=== PATIENT | male | born 1970 | race Caucasian/White ===

== ENCOUNTER 2020-02-11 10:26 | Outpatient (CLI) | payer OTHER, SELFPAY ==
[2020-02-11 10:55] LABS: Hematocrit 45.5 % (42.0-52.0); Hemoglobin 15.8 g/dL (14.0-18.0); Mean Corpuscular HGB Conc 34.7 g/dl (32-36); Mean Corpuscular Hemoglobin 33.3 pg (26-34); Mean Platelet Volume 9.8 fl (7.4-10.4); Platelet Count Result 185 k/mm3 (150-375); Red Blood Count 4.74 M/mm3 (4.6-6.20); Red Cell Distribution Width 12.2 % (11.5-14.5); White Blood Count 5.3 K/mm3 (4.5-10.0)
[2020-02-11 10:57] LABS: Add Urine Microscopic? NO; Appearance Urine Clear (Clear); Bilirubin Urine Negative (Negative); Blood Urine Negative (Negative); Color Urine Straw (Yellow); Glucose Urine UA Negative (Negative); Ketones Urine Negative (Negative); Leukocyte Esterase Ur Negative LEU/UL (NEGATIVE); Nitrate Urine Negative (Negative); Protein Urine Negative (Negative); Urobilinogen Urine Negative mg/dL (<2.0)
[2020-02-11 11:09] LABS: Alanine Aminotransferase 27 U/L (4-50); Albumin Level 4.4 g/dL (3.5-5.1); Alkaline Phosphatase 60 U/L (38-126); Anion Gap 5 mmol/L (8-16); Aspartate Amino Transferase 25 U/L (17-59); Bilirubin,Total 1.3 mg/dL (0.2-1.3); Blood Urea Nitrogen 17 mg/dL (9-20); Calcium 9.6 mg/dL (8.4-10.2); Carbon Dioxide 34 mmol/L (22-30); Chloride 100 mmol/L (98-107); Cholesterol 236 mg/dL (0-200); Estimated Glomerular Filt Rate > 60; Glucose 104 mg/dL (75-110); HDL Direct 66 mg/dL; Potassium 4.3 mmol/L (3.4-5.0); Sodium 139 mmol/L (137-145); Triglycerides 136 mg/dL (<150)
[2020-02-11 11:22] LABS: LDL Cholesterol Direct 146 mg/dL
[2020-02-11 11:39] LABS: Prostate Specific Antigen 0.5 ng/mL (< OR = 4.0)
[2020-02-11 12:20] LABS: Folic Acid 7.4 ng/mL (2.76->20)
[2020-02-14 09:22] LABS: Testosterone Total 603 ng/dL (250-1100)
== END 2020-02-11 10:27 | disposition home or self-care (01) ==
PROVIDERS: PCP Family Medicine; Visit Provider Family Medicine
DX: Z00.00 Encounter for general adult medical examination without abnormal findings (principal); E78.2 Mixed hyperlipidemia; R53.83 Other fatigue
CPT/HCPCS: 36415; 80053; 80061; 81003; 82607; 82746; 84153; 84403; 84443; 85027

== ENCOUNTER 2020-03-24 09:41 | Outpatient (CLI) | payer OTHER, SELFPAY ==
--- NOTE | 2020-05-07 12:20 | WPDHOMESLEEP ---
Sleep Study - Home Unattended Date of Study: 03/24/20 Ordering Provider: Sean Cartwright MD Interpreting Physician: Bethany Castano MD Home Sleep Study Type: Watch PAT Height: 1.8 m Weight: 83.915 kg Body Mass Index: 25.7 Neck Circumference (inches): 16.5 Tunas: 10 Reason for Sleep Study Hypersomnolence Sleep History Owen Laura is a 50 year old man who has constant feelings of tiredness, fatigue, and excessive sleepiness during the day. He keeps a regular schedule, tries to get 7-8 hours of sleep at night. He has chronic daytime fatigue. He has dreams, however not often. He has nocturia, at most up to twice per week. He does not have any nasal symptoms such as nasal congestion, septal deviation or seasonal allergies. He denies heartburn, choking or coughing at night. He snores and has been told by others that he stops breathing at night. He had a difficult divorce last year and a career change, with associated stress and depression. He has had weight gain and fatigue. He did not complete the patient questionnaire. FORMERLY [facility] Past Medical History Medical History Elevated blood pressure reading HLD (hyperlipidemia) Hypertension Smoking Family History Family History Father Hypertension Family history of elevated blood lipids Family history of coronary artery disease Mother Hypertension Sibling Family history of elevated blood lipids Social History Social History Smoking packs per day: 1 Smoking cigarettes per day: 20.0 Smoking status: Current every day smoker Tobacco type: cigarettes Second hand tobacco smoke exposure: Yes Alcohol intake: current Drinks per week: 14 Substance use: never Substance use type: does not use Gender identity (if verbalized by the patient): Male Medications Home Medications Medication Instructions Recorded Confirmed Type pravastatin 20 mg tablet 20 mg PO DAILY #90 tablet 02/22/20 Rx Sleep Procedure The sleep study was completed using WatchPAT a technically adequate device with seven channels: peripheral arterial tone, actigraphy, body position, snore, respiratory movement, pulse oximetry, sleep staging, and heart rate. Prior to using the device, the patient received verbal and written instructions for its application and was provided with the help desk phone number for additional telephonic instruction with 24-hour availability of qualified personnel to answer questions. Sleep Architecture The total recording time was 7 hours 55 minutes. This total sleep time was 6 hours and 56 minutes. Sleep latency was 20 minutes, normal. REM latency was 50 minutes, short and this is consistent with hypersomnolence. Sleep efficiency was 87.5% which is normal. He spent 12.5% of the study awake after sleep onset. Sleep architecture showed 33% REM, 38% light sleep, and 28% deep sleep. This is normal sleep architecture. The patient spent 85.7% of the sleep time in the supine position, 14.3% in the nonsupine position. He spent 8.9% in the right lateral and 5.4% in the left lateral position. Respiratory Analysis The apnea-hypopnea index was 5.2, mildly elevated. He had a total of 33 events. He had no central apneas. There was no evidence of Nelson-Mcmahon respirations. The supine apnea-hypopnea index is 5.9. The nonsupine apnea-hypopnea index is 1.0. He had no events in the right lateral position. Oximetry Data Oxygen desaturation index was 4.8. He had 33 desaturations. The lowest desaturation was 89%. All events were between 4% and 9% desaturation. He spent 0.1 minute below 90%. No time was spent below 88%. Snoring Profile The mean snoring intensity was 41 decibels. He spent 36.8 minutes of sleep snoring, 8.8% of the sleep time. This is not considered severe. Cardiac Profile Average heart rate was 63. Minimum heart rate 48, maximum
[2020-05-07 14:09] VITALS: BMI 25.7
== END 2020-03-24 09:42 | disposition home or self-care (01) ==
LOC: ANHCSM 05-24 09:41
PROVIDERS: PCP Family Medicine; Visit Provider Family Medicine
DX: G47.33 Obstructive sleep apnea (adult) (pediatric) (principal)
CPT/HCPCS: 95800

== ENCOUNTER 2021-01-01 08:25 | Outpatient (CLI) | payer OTHER, SELFPAY ==
[2021-01-01 08:47] LABS: Basophils Absolute Auto 0.1 K/mm3 (0.0-0.1); Basophils Percent Auto 1.3 % (0.2-1.2); Eosinophils Absolute Auto 0.1 K/mm3 (0-0.3); Eosinophils Percent Auto 1.9 % (0-4.4); Hematocrit 45.3 % (42.0-52.0); Hemoglobin 15.5 g/dL (14.0-18.0); Immature Granulocyte Absolute 0.03 K/mm3 (0.00-0.031); Immature Granulocyte Percent A 0.5 % (0-0.5); Lymphocytes Percent Auto 23.9 % (18.3-44.2); Mean Corpuscular HGB Conc 34.2 g/dl (32-36); Mean Corpuscular Volume 96.6 fl (80-100); Mean Platelet Volume 9.8 fl (7.4-10.4); Monocytes Absolute Auto 0.6 K/mm3 (0.1-0.6); Neutrophils Absolute Auto 3.9 K/mm3 (1.3-6.7); Neutrophils Percent Auto 62.4 % (45.5-73.1); Platelet Count Result 188 k/mm3 (150-375); Red Blood Count 4.69 M/mm3 (4.6-6.20); Red Cell Distribution Width 12.4 % (11.5-14.5); White Blood Count 6.3 K/mm3 (4.5-10.0)
[2021-01-01 08:49] LABS: Add Urine Microscopic? NO; Appearance Urine Clear (Clear); Bilirubin Urine Negative (Negative); Blood Urine Negative (Negative); Color Urine Yellow (Yellow); Glucose Urine UA Negative (Negative); Ketones Urine Negative (Negative); Leukocyte Esterase Ur Negative LEU/UL (NEGATIVE); Nitrate Urine Negative (Negative); Protein Urine Negative (Negative); Specific Grav Ur 1.014 (1.001-1.035); Urobilinogen Urine Negative mg/dL (<2.0)
[2021-01-01 08:58] LABS: Alanine Aminotransferase 27 U/L (4-50); Albumin Level 4.3 g/dL (3.5-5.1); Alkaline Phosphatase 63 U/L (38-126); Anion Gap 7 mmol/L (8-16); Aspartate Amino Transferase 25 U/L (17-59); Bilirubin,Total 0.9 mg/dL (0.2-1.3); Blood Urea Nitrogen 19 mg/dL (9-20); Calcium 9.5 mg/dL (8.4-10.2); Carbon Dioxide 30 mmol/L (22-30); Chloride 102 mmol/L (98-107); Cholesterol 229 mg/dL (0-200); Estimated Glomerular Filt Rate > 60; Glucose 98 mg/dL (65-110); HDL Direct 57 mg/dL; Potassium 4.7 mmol/L (3.4-5.0); Sodium 139 mmol/L (137-145); Triglycerides 212 mg/dL (<150)
[2021-01-01 09:10] LABS: LDL Cholesterol Direct 113 mg/dL
[2021-01-01 09:29] LABS: Prostate Specific Antigen 0.7 ng/mL (< OR = 4.0)
[2021-01-10 13:04] LABS: Testosterone Total 287 ng/dL (250-1100)
== END 2021-01-01 08:26 | disposition home or self-care (01) ==
PROVIDERS: PCP Family Medicine; Visit Provider Physician Assistant
DX: Z00.00 Encounter for general adult medical examination without abnormal findings (principal); G47.33 Obstructive sleep apnea (adult) (pediatric); F17.200 Nicotine dependence, unspecified, uncomplicated; E78.5 Hyperlipidemia, unspecified; R03.0 Elevated blood-pressure reading, without diagnosis of hypertension; Z12.5 Encounter for screening for malignant neoplasm of prostate
CPT/HCPCS: 36415; 80053; 80061; 81003; 84153; 84403; 84443; 85025

== ENCOUNTER 2022-01-06 09:24 | Emergency (ER) | payer OTHER, SELFPAY ==
--- NOTE | ~2022-01-06 | XR_ITS ---
XR wrist LT min 3V 01/06/2022 09:48 Indication: Left wrist pain after fall Procedure: 4 views left wrist Comparison: No prior studies for comparison. Findings: There is a possible nondisplaced radial styloid fracture. 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 No significant soft tissue abnormality. No other fractures identified. Impression: 1: Possible nondisplaced fracture radial styloid. Correlate for point tenderness. Reviewed, dictated and finalized at location A. Impression: 1: Possible nondisplaced fracture radial styloid. Correlate for point tendernes s.
--- NOTE | 2022-01-06 09:35 | ED.UPPEXIN ---
HPI - Extremity Injury (Upper) General Chief Complaint: Extremity Injury, Upper Stated Complaint: L wrist injury last tuesday Time Seen by Provider: 01/06/22 09:27 History of Present Illness HPI narrative: 51-year-old male presented emergency room complaints of left wrist pain. 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 States the pain is on the ulnar side. Pain is worse with certain movements. Has taken Tylenol and ibuprofen without any resolution of his symptoms. Patient states he is concerned that he may have dislocated his wrist. Related Data Allergies Allergy/AdvReac Type Severity Reaction Status Date / Time azithromycin Allergy Unknown Anxiety Verified 12/22/21 09:04 Review of Systems Review of Systems: CONSTITUTIONAL: Denies fever, chills, or sweats. EYES: Denies visual changes, redness, or discharge. ENT: Denies rhinorrhea, congestion, sore throat, or otalgia. CARDIOVASCULAR: Denies chest pain, palpitations, or edema. RESPIRATORY: Denies cough or dyspnea. GASTROINTESTINAL: Denies abdominal pain, nausea, vomiting, or diarrhea. GENITOURINARY: Denies dysuria or hematuria. SKIN: Denies rash or itching. MUSCULOSKELETAL: Reports left wrist pain NEUROLOGIC: Denies headache, numbness, dizziness, or weakness. PSYCHIATRIC: Denies anxiety or depression. PMFSH Past Medical History Medical History Elevated blood pressure reading HLD (hyperlipidemia) Hypertension Smoking Family History Family History Father Hypertension Family history of elevated blood lipids Family history of coronary artery disease Mother Hypertension Sibling Family history of elevated blood lipids Social History Social History Smoking packs per day: 1 Smoking cigarettes per day: 20.0 Smoking status: Current every day smoker Tobacco type: cigarettes Second hand tobacco smoke exposure: Yes Alcohol intake: current Drinks per week: 14 Substance use: never Substance use type: does not use Gender identity (if verbalized by the patient): Male Exam Narrative: GENERAL: Well-appearing, well-nourished, no physical limitations, and in no acute distress. HEAD: Normocephalic, atraumatic. EYES: Conjunctivae normal, PERRLA and EOMI. CHEST: Clear to auscultation. No respiratory distress. No wheezes rales or rhonchi. No tenderness. HEART: Regular rate and rhythm. No murmur heard. Normal peripheral pulses. EXTREMITIES: Left wrist: Tenderness to the distal ulna and medial radiocarpal joint, no bony abnormality, full range of motion, pain present with radial deviation, neurovascular is distally intact, no soft tissue swelling noted SKIN: Warm, dry, no rash. No noted wounds NEURO: No focal deficits. Alert and oriented x3. MAEW. CN's II-XI intact bilaterally, normal gait PSYCH: Cooperative. Normal mood and affect. Course Vital Signs Vital signs: Vital Signs Temperature 36.8 C 01/06/22 09:54 Pulse Rate 77 01/06/22 09:54 Respiratory Rate 14 01/06/22 09:54 Blood Pressure 136/102 H 01/06/22 09:54 Pulse Oximetry 97 01/06/22 09:54 Oxygen Delivery Room Air 01/06/22 09:54 Temperature 36.8 C 01/06/22 09:54 Pulse Rate 77 01/06/22 09:54 Respiratory Rate 14 01/06/22 09:54 Blood Pressure 136/102 H 01/06/22 09:54 Pulse Oximetry 97 01/06/22 09:54 Oxygen Delivery Room Air 01/06/22 09:54 MDM - Extremity Injury (Upper) Imaging Data Radiologist's impression: Impressions Wrist X-Ray 01/06/22 09:56 Impression: 1: Possible nondisplaced fracture radial styloid. Correlate for point tenderness. Discharge Plan Discharge Clinical Impression: Acute pain of left wrist Patient Disposition: Home, Self-Care Condition: Stable Instructions: Antibiotic Form Prescriptions: No Action
[2022-01-06 09:54] VITALS: BP 136/102; PULSE 77; RESP 14; TEMP 36.8; O2SAT 97
== END 2022-01-06 10:58 | disposition home or self-care (01) ==
PROVIDERS: Emergency Provider Nurse Practitioner Family; PCP Family Medicine
DX: M25.532 Pain in left wrist (principal); I10 Essential (primary) hypertension; E78.5 Hyperlipidemia, unspecified; F17.210 Nicotine dependence, cigarettes, uncomplicated
CPT/HCPCS: 29125; 73110; 99283; A4565

== ENCOUNTER 2024-02-21 10:24 | Outpatient (CLI) | payer OTHER, SELFPAY ==
[2024-02-21 10:50] LABS: Hematocrit 46.4 % (42.0-52.0); Hemoglobin 15.6 g/dL (14.0-18.0); Mean Corpuscular HGB Conc 33.6 g/dl (32-36); Mean Corpuscular Hemoglobin 33.3 pg (26-34); Mean Corpuscular Volume 99.1 fl (80-100); Mean Platelet Volume 10.2 fl (7.4-10.4); Platelet Count Result 199 k/mm3 (150-375); Red Blood Count 4.68 M/mm3 (4.6-6.20); Red Cell Distribution Width 12.3 % (11.5-14.5); White Blood Count 4.5 K/mm3 (4.5-10.0)
[2024-02-21 10:54] LABS: Add Urine Microscopic? NO; Appearance Urine Clear (Clear); Bilirubin Urine Negative (Negative); Blood Urine Negative (Negative); Color Urine Yellow (Yellow); Glucose Urine UA Negative (Negative); Ketones Urine Negative (Negative); Leukocyte Esterase Ur Negative LEU/UL (Negative); Nitrate Urine Negative (Negative); Protein Urine Negative (Negative); Specific Grav Ur 1.007 (1.001-1.035); Urobilinogen Urine 0.2 mg/dL (<2.0)
[2024-02-21 11:05] LABS: Alanine Aminotransferase 32 U/L (6-50); Albumin Level 4.4 g/dL (3.5-5.1); Alkaline Phosphatase 67 U/L (38-126); Anion Gap 7 mmol/L (4-12); Aspartate Amino Transferase 25 U/L (17-59); Bilirubin,Total 1.6 mg/dL (0.2-1.3); Blood Urea Nitrogen 15 mg/dL (9-20); Calcium 9.8 mg/dL (8.4-10.2); Carbon Dioxide 31 mmol/L (22-30); Chloride 99 mmol/L (98-107); Cholesterol 269 mg/dL (0-200); Estimated Glomerular Filt Rate 58; Glucose 102 mg/dL (65-110); HDL Direct 61 mg/dL; Hemoglobin A1C 5.4 % (<5.7); Potassium 4.5 mmol/L (3.4-5.0); Sodium 137 mmol/L (137-145); Triglycerides 151 mg/dL (<150)
[2024-02-21 11:17] LABS: LDL Cholesterol Direct 155 mg/dL
[2024-02-21 11:36] LABS: Prostate Specific Antigen 0.6 ng/mL (< OR = 4.0)
== END 2024-02-21 10:25 | disposition home or self-care (01) ==
LOC: ANHLAB 10:26
PROVIDERS: PCP Family Medicine; Visit Provider Physician Assistant
DX: Z00.00 Encounter for general adult medical examination without abnormal findings (principal); E78.5 Hyperlipidemia, unspecified; R03.0 Elevated blood-pressure reading, without diagnosis of hypertension; G47.33 Obstructive sleep apnea (adult) (pediatric); Z12.5 Encounter for screening for malignant neoplasm of prostate
CPT/HCPCS: 36415; 80053; 80061; 81003; 83036; 84153; 84443; 85027; G0103

== ENCOUNTER 2024-09-12 15:20 | Outpatient (CLI) | payer OTHER, SELFPAY ==
--- NOTE | ~2024-09-12 | XR_ITS ---
XR abdomen/kub 1V Ordering provider: Linda Hernandez PA-C History: . R14.0 - Abdominal distension (gaseous) . Comparison: None. FINDINGS: BOWEL: Slightly dilated small bowel loops in the upper abdomen. Early or partial obstruction cannot b e excluded. Follow-up advised. ORGANOMEGALY: None. SIGNIFICANT PATHOLOGIC CALCIFICATIONS: None. OTHER: No free air is seen under the diaphragm. IMPRESSION: Slightly dilated small bowel loops in the upper abdomen. An early or partial obstruction cannot be ex cluded. Follow-up advised. Reviewed, dictated and finalized at location A. IMPRESSION: Slightly dilated small bowel loops in the upper abdomen. An early or partial ob struction cannot be excluded. Follow-up advised.
[2024-09-12 15:39] LABS: Basophils Percent Auto 0.4 % (0.2-1.2); Eosinophils Absolute Auto 0.1 K/mm3 (0-0.3); Hematocrit 45.9 % (42.0-52.0); Hemoglobin 15.3 g/dL (14.0-18.0); Immature Granulocyte Absolute 0.02 K/mm3 (0.00-0.031); Immature Granulocyte Percent A 0.4 % (0-0.5); Lymphocytes Absolute Auto 0.95 K/mm3 (0.9-3.2); Lymphocytes Percent Auto 18.2 % (18.3-44.2); Mean Corpuscular HGB Conc 33.3 g/dl (32-36); Mean Corpuscular Hemoglobin 33.2 pg (26-34); Mean Corpuscular Volume 99.6 fl (80-100); Mean Platelet Volume 9.6 fl (7.4-10.4); Monocytes Absolute Auto 0.7 K/mm3 (0.1-0.6); Monocytes Percent Auto 12.6 % (2.6-8.5); Neutrophils Absolute Auto 3.5 K/mm3 (1.3-6.7); Neutrophils Percent Auto 67.4 % (45.5-73.1); Platelet Count Result 179 k/mm3 (150-375); Red Blood Count 4.61 M/mm3 (4.6-6.20); Red Cell Distribution Width 12.4 % (11.5-14.5); White Blood Count 5.2 K/mm3 (4.5-10.0)
[2024-09-12 16:15] LABS: Alanine Aminotransferase 46 U/L (6-50); Albumin Level 4.3 g/dL (3.5-5.1); Alkaline Phosphatase 52 U/L (38-126); Amylase 51 U/L (30-110); Anion Gap 9 mmol/L (4-12); Aspartate Amino Transferase 37 U/L (17-59); Bilirubin,Total 1.3 mg/dL (0.2-1.3); Blood Urea Nitrogen 16 mg/dL (9-20); Calcium 9.1 mg/dL (8.4-10.2); Carbon Dioxide 30 mmol/L (22-30); Chloride 97 mmol/L (98-107); Estimated Glomerular Filt Rate > 60; Glucose 101 mg/dL (65-110); Lipase 47 U/L (23-300); Potassium 4.2 mmol/L (3.4-5.0); Sodium 136 mmol/L (137-145)
== END 2024-09-12 15:21 | disposition home or self-care (01) ==
LOC: ANHLAB 15:21
PROVIDERS: PCP Family Medicine; Visit Provider Physician Assistant Medical
DX: E78.00 Pure hypercholesterolemia, unspecified (principal); R14.0 Abdominal distension (gaseous); K59.00 Constipation, unspecified; R10.13 Epigastric pain
CPT/HCPCS: 36415; 74018; 80053; 82150; 83690; 85025

== ENCOUNTER 2024-09-12 23:38 | Inpatient (IN) | payer OTHER, SELFPAY ==
--- NOTE | ~2024-09-12 | XR_ITS ---
EXAMINATION: XR sm bowel follow through WS DATE: 09/13/2024 10:28 INDICATION: Small bowel obstruction TECHNIQUE: Water-soluble contrast was administered through the patient's existing nasogastric tube an d sequential radiographs of the abdomen were obtained until oral contrast was noted to be in the prox imal colon. COMPARISON: None. FINDINGS: Nasogastric tube tip in the body the stomach. Transit time from the stomach to proximal colon was nacho roximately 1 hour. There is normal caliber and mucosal fold pattern throughout the small bowel. There are some residual contrast in the latter likely related to a contrast enhanced CT performed earlier in the morning. IMPRESSION: 1. Normal small bowel follow-through. Reviewed, dictated and finalized at location A.
--- NOTE | ~2024-09-12 | CT_ITS ---
CT of the Abdomen and Pelvis: Indication: Abdominal pain Technique: 2.5 mm axial scans were obtained through the abdomen and pelvis following intravenous adm inistration of 100 cc of Omnipaque 350. Dose reduction technique was used on this scan by utilizing a utomated exposure control and iterative reconstruction technique. The dose-length product (DLP) was 7 43.21 mGy-cm. Findings: Scans through the lung bases are unremarkable. The liver, spleen, pancreas, gallbladder, adrenals and kidneys are within normal limits. No evidence of aortic aneurysm. No lymphadenopathy. Multiple dilated proximal small bowel are present. Distal small bowel is relatively decompressed. Sug gestion of relative transition point in the right mid abdomen. There are small fat-containing umbilic al hernia present. Images through the pelvis were performed. Urinary bladder unremarkable. No pelvic mass seen. Trace pe lvic ascites noted. Impression: Small bowel obstruction, as detailed above. Transient point in the right mid abdomen. Reviewed, dictated and finalized at location . Impression: Small bowel obstruction, as detailed above. Transient point in the right mid ab domen.
--- NOTE | ~2024-09-12 | XR_ITS ---
Upright portable view of the abdomen Clinical history: NG tube placement Findings: NG tube in satisfactory position. Dilated small bowel loops are compatible with small bowel obstruction. No free air. No abnormal mass lesion or calcification is seen. Osseous structures are i ntact. Impression: NG tube in satisfactory position. Small bowel obstruction. Reviewed, dictated and finalized at location . Impression: NG tube in satisfactory position. Small bowel obstruction.
[2024-09-12 23:52] VITALS: BP 154/95; PULSE 80; RESP 18; TEMP 37.2; O2SAT 100
[2024-09-13] VITALS (8 sets, daily range): BP systolic 124–148; BP diastolic 88–100; PULSE 74–83; RESP 16–20; TEMP 36.8; O2SAT 96–100; BMI 28.9
--- NOTE | 2024-09-13 01:53 | ED.ABDPAIN ---
HPI - Abdominal Pain General Chief Complaint: Abdominal Pain Stated Complaint: abd pain Time Seen by Provider: 09/13/24 01:35 History of Present Illness HPI narrative: 54-year-old male with a past medical history including hyperlipidemia and hypertension. He presents to the emergency depart with chief complaint of abdominal cramping, constipation with associated nausea vomiting. Symptoms going on since last Tuesday. Patient states that he went to his primary care provider's office today for these symptoms after lying in bed for last 2 days not able to tolerate any significant meals or drinks without vomiting. They ordered abdominal x-rays and laboratory studies which showed some early versus partial bowel obstructions. Patient was sent home and told to return for the CT scans they were planning for outpatient evaluation. Patient worsening abdominal cramping after trying to drink a smoothie when he was at home and had significant distension, nauseousness and vomiting numerous times. He came to the ER for evaluation. He endorses distension and swollen heart abdomen as well as generalized abdominal discomfort associated with nauseousness. Symptoms come and go in waves in associated with food. States he has not had any solid intake in several days and has been just trying to drink water and liquids. Endorses several bouts of diarrhea without any solid bowel movements. No blood in the diarrhea, no mucus or pain with defecation. No recent medication changes, no trauma or injury. He was otherwise in his normal state of health. Patient's only surgical history was when he was 11-year-old and had a inguinal hernia repair. Related Data Allergies Allergy/AdvReac Type Severity Reaction Status Date / Time azithromycin Allergy Unknown Anxiety Verified 09/12/24 13:31 Review of Systems Review of Systems: As reviewed above in HPI [facility] Past Medical History Medical History Left wrist sprain Hypertension Elevated blood pressure reading Smoking HLD (hyperlipidemia) Surgical History Surgical History No significant past surgical history Family History Family History Father Hypertension Family history of elevated blood lipids Family history of coronary artery disease Mother Hypertension Sibling Family history of elevated blood lipids Other Arthritis HLD (hyperlipidemia) Social History Social History Smoking packs per day: 1 Smoking cigarettes per day: 20.0 Smoking status: Current every day smoker Tobacco type: e-cigarettes/vaping Second hand tobacco smoke exposure: Yes Alcohol intake: current Drinks per week: 14 Substance use: never Substance use type: does not use Living arrangements: with family Occupation/Education: occupation Gender identity (if verbalized by the patient): Male Exam Narrative: GENERAL: [Well-appearing, well-nourished, and in no acute distress.] HEAD: [Normocephalic, atraumatic.] EYES: [PERRLA and EOMI.] ENT: Nares clear, no rhinorrhea or epistaxis. Mucous membranes moist. NECK: Supple. CHEST: [Clear to auscultation. No respiratory distress.] HEART: [Regular rate and rhythm]. No murmur heard. [Normal peripheral pulses.] ABDOMEN: Distended, soft, tender to palpation generalized, tympanic to percussion. No rigidity or guarding EXTREMITIES: Normal range of motion. [No edema.] SKIN: Warm, dry, no rash. NEURO: [No focal deficits]. Alert and oriented [x3.] PSYCH: [Normal mood and affect.] Course Vital Signs Vital signs: Vital Signs Temperature 37.2 C 09/12/24 23:52 Pulse Rate 80 09/12/24 23:52 Respiratory Rate 18 09/12/24 23:52 Blood Pressure 154/95 H 09/12/24 23:52 Pulse Oximetry 100 09/12/24 23:52 Temperature 37.2 C 09/12/24 23:52 Pulse Rate 75 09/13/24 04:20 Respiratory Rate 16 09/13/24 04:20 Blood Pressure 124/88 09/13/24 04:20 Pulse Oximetry 96 09/13/24 04:20 MDM - Abdominal Pain MDM Narrative Medical decision making narrative: 54-year-old male with history of hypertension hyperlipidemia presenting with abdominal bloating, distention, nausea and vomiting with eating as well as some intermittent diarrhea for last few days. Symptoms going on since last Tuesday. He states that he has been having waves of abdominal cramping associated nausea vomiting and occasional diarrhea. No solid bowel movements and states he is not passing gas. He is afebrile, not any acute distress states his symptoms are better at this time without having anything recently to eat or drink. He has a distended tympanic abdomen but no signs of peritonitis. Minimally tender to palpation. He is not acutely distressed. Considerations presently given his recent outpatient workup are for potential partial versus early small bowel obstruction, given his diarrhea low suspicion for complete bowel obstruction. Possibility of gastroenteritis versus colitis were inflammatory or infectious bowel disease. Laboratory studies were drawn including CBC, CMP, lipase, lactic acid, CT scan with IV contrast of the abdomen and pelvis was ordered. He was given intramuscular Bentyl for symptom control and re-evaluated afterwards. CT scan report shows full bowel obstruction with transition point in the right lower quadrant. Normal organs otherwise, normal appendix, inflammatory stranding around a umbilicus with a small fat containing hernia. Patient's lactic acid is negative and he has no leukocytosis or significant anemia. His LFTs are mildly elevated. Normal kidney function otherwise. I discussed this with the general surgeon on-call Dr. Camacho who recommended NG tube and admission to the hospital service for surgical evaluation. Discussed this with the patient at bedside including plan of care at this time for NG tube insertion, KUB afterwards, admission to the hospital for General surgery evaluation. Hospitalist Dr. Sullivan was spoken to and agreeable for admission to [facility]. Patient was given pain control medications including Dilaudid and Zofran, p.r.n. medications ordered, maintenance fluids started admission orders placed. Medical Records Attestation: I reviewed the patient's medical records. Lab Data Attestation: I reviewed the patient's lab results. 09/13/24 02:03 09/13/24 02:03 Labs: Lab Results 09/13/24 Range/Units 02:03 WBC 7.5 (4.5-10.0) K/mm3 RBC 4.41 L (4.6-6.20) M/mm3 Hgb 14.7 (14.0-18.0) g/dL Hct 43.0 (42.0-52.0) % MCV 97.5 (80-100) fl MCH 33.3 (26-34) pg MCHC 34.2 (32-36) g/dl RDW 12.4 (11.5-14.5) % Plt Count 188 (150-375) k/mm3 MPV 9.7 (7.4-10.4) fl Immature Gran % (Auto) 0.4 (0-0.5) % Neut % (Auto) 74.7 H (45.5-73.1) % Lymph % (Auto) 13.9 L (18.3-44.2) % [place] % (Auto) 9.9 H (2.6-8.5) % Eos % (Auto) 0.7 (0-4.4) % Baso % (Auto) 0.4 (0.2-1.2) % Lymph # (Auto) 1.04 (0.9-3.2) K/mm3 [place] # (Auto) 0.7 H (0.1-0.6) K/mm3 Eos # (Auto) 0.1 (0-0.3) K/mm3 Baso # (Auto) 0.0 (0.0-0.1) K/mm3 Abs Immat Gran (auto) 0.03 (0.00-0.031) K/mm3 Absolute Neuts (auto) 5.6 (1.3-6.7) K/mm3 Absolute Nucleated RBC 0.000 (0.0-0.012) K/mm3 Nucleated RBC % 0.0 (0.0-0.2) % Sodium 135 L (137-145) mmol/L Potassium 3.6 (3.4-5.0) mmol/L Chloride 99 (98-107) mmol/L Carbon Dioxide 27 (22-30) mmol/L Anion Gap 9 (4-12) mmol/L BUN 18 (9-20) mg/dL Creatinine 1.09 (0.7-1.3) mg/dL Estim Creat Clear Calc 75 ml/min Estimated GFR > 60 (59 - ) Glucose 113 H (65-110) mg/dL Lactic Acid 0.8 (0.7-2.0) mmol/L Calcium 9.3 (8.4-10.2) mg/dL Total Bilirubin 1.1 (0.2-1.3) mg/dL AST 60 H (17-59) U/L ALT 69 H (6-50) U/L Alkaline Phosphatase 61 (38-126) U/L Total Protein 7.0 (6.3-8.2) g/dL Albumin 4.1 (3.5-5.1) g/dL Lipase 58 (23-300) U/L Imaging Data Attestation: I personally reviewed and interpreted this imaging study as follows: My impression: Impressions Abdomen/Pelvis CT 09/13/24 05:31 Impression: Small bowel obstruction, as detailed above. Transient point in the right mid abdomen. Radiologist's impression: ITS Impressions Abdomen/Pelvis CT 09/13/24 05:31 Impression: Small bowel obstruction, as detailed above. Transient point in the right mid abdomen. Discharge Plan Discharge Clinical Impression: Complete small bowel obstruction Patient Disposition: Still a Patient Condition: Stable Instructions: Antibiotic Form Patient Language: Bulgarian Prescriptions: No Action pravastatin 20 mg tablet 20 mg PO DAILY Qty: 90 3RF Follow-up/Referrals: Sean Cartwright MD [Primary Care Provider] - Time of Disposition: 05:40
[2024-09-13 02:09] LABS: Basophils Percent Auto 0.4 % (0.2-1.2); Eosinophils Absolute Auto 0.1 K/mm3 (0-0.3); Eosinophils Percent Auto 0.7 % (0-4.4); Hemoglobin 14.7 g/dL (14.0-18.0); Immature Granulocyte Absolute 0.03 K/mm3 (0.00-0.031); Immature Granulocyte Percent A 0.4 % (0-0.5); Lymphocytes Absolute Auto 1.04 K/mm3 (0.9-3.2); Lymphocytes Percent Auto 13.9 % (18.3-44.2); Mean Corpuscular HGB Conc 34.2 g/dl (32-36); Mean Corpuscular Hemoglobin 33.3 pg (26-34); Mean Corpuscular Volume 97.5 fl (80-100); Mean Platelet Volume 9.7 fl (7.4-10.4); Monocytes Absolute Auto 0.7 K/mm3 (0.1-0.6); Monocytes Percent Auto 9.9 % (2.6-8.5); Neutrophils Absolute Auto 5.6 K/mm3 (1.3-6.7); Neutrophils Percent Auto 74.7 % (45.5-73.1); Platelet Count Result 188 k/mm3 (150-375); Red Blood Count 4.41 M/mm3 (4.6-6.20); Red Cell Distribution Width 12.4 % (11.5-14.5); White Blood Count 7.5 K/mm3 (4.5-10.0)
[2024-09-13 02:18] LABS: Lactic Acid Reflex 0.8 mmol/L (0.7-2.0)
[2024-09-13] MEDS: DICYCLOMINE HCL INJ 20 MG/2 ML VIAL IM (02:18)
--- NOTE | 2024-09-13 02:22 | PC.NURSE ---
Patient was asked to provide urine sample and stated he would try. Pt was unable to provide sample. This RN informed pt that straight cath would be needed. Pt refused straight cath and stated he would wait and try again.
[2024-09-13 02:55] LABS: Alanine Aminotransferase 69 U/L (6-50); Albumin Level 4.1 g/dL (3.5-5.1); Alkaline Phosphatase 61 U/L (38-126); Anion Gap 9 mmol/L (4-12); Aspartate Amino Transferase 60 U/L (17-59); Bilirubin,Total 1.1 mg/dL (0.2-1.3); Blood Urea Nitrogen 18 mg/dL (9-20); Calcium 9.3 mg/dL (8.4-10.2); Carbon Dioxide 27 mmol/L (22-30); Chloride 99 mmol/L (98-107); Estimated CRCL calculation 75 ml/min; Estimated Glomerular Filt Rate > 60; Glucose 113 mg/dL (65-110); Lipase 58 U/L (23-300); Potassium 3.6 mmol/L (3.4-5.0); Sodium 135 mmol/L (137-145)
--- NOTE | 2024-09-13 03:22 | PC.NURSE ---
Patient was asked again to provide urine sample and stated he is unable to. Pt is still refusing straight cath and asking to pass on the urine sample.
--- NOTE | 2024-09-13 04:00 | PC.NURSE ---
This RN informed EDP Chhayaian that patient is unable to provide urine sample. EDP stated It's okay. It will not make a difference in his diagnosis.
[2024-09-13] MEDS: ONDANSETRON INJ 4 MG/2 ML VIAL IV PUSH (05:48)
[2024-09-13] MEDS: LACTATED RINGERS 1,000 ML 125 ML IV CONT (05:48)
--- NOTE | 2024-09-13 06:38 | PC.NURSE ---
NG tube placed by this RN & HIRAM Vigil @ 0555. 14 korean - 60 @ the right nare Confirmed by spontaneous return, auscultation, and xray vorb from EDP Torossian that NG is okay to be hooked up to low int. suction
--- NOTE | 2024-09-13 08:05 | PC.NURSE ---
RN attempted urine sample from patient. Patient stated he did not think the doctors needed a sample anymore. RN gave patient a urinal and educated patient on using urinal for a sample when he needs to go again.
[2024-09-13 08:26] LABS: Add Urine Microscopic? NO; Appearance Urine Clear (Clear); Bilirubin Urine Negative (Negative); Blood Urine Negative (Negative); Color Urine Yellow (Yellow); Glucose Urine UA Negative (Negative); Ketones Urine Trace mg/dL (Negative); Leukocyte Esterase Ur Negative LEU/UL (Negative); Nitrate Urine Negative (Negative); Protein Urine Negative (Negative); Specific Grav Ur > 1.045 (1.001-1.035); pH Urine 5.5 (5.0-9.0)
--- NOTE | 2024-09-13 08:52 | P.CONGS_ITS ---
Assessment and Plan Assessment and plan (1) Small bowel obstruction: Code(s): K56.609 - Unspecified intestinal obstruction, unspecified as to partial versus complete obstruction Status: Acute Assessment and Plan: Feels better after NG tube decompression, continue conservative management with decompression and bowel rest, IV fluids, will get small bowel series for further evaluation History of Present Illness Consult details Consult date: 09/13/24 Reason for consult: abdominal pain Requesting physician: Oliver Swartz MD Narrative: The patient is a 54-year-old male presenting to the emergency department complaining severe, crampy abdominal pain, intractable nausea and vomiting. The patient reports the symptoms have been progressively worsening since over the weekend. The patient reports he has been having bowel function although it has been mostly diarrhea. The patient reports the pain has progressively worsened and he is really unable to keep anything. The patient denies any previous similar episodes. Workup in the emergency department, including imaging, is significant for small bowel obstruction. The patient reports his only abdominal surgery in the past is a right inguinal hernia surgery as a child. Review of Systems 2 Review of Systems: All systems reviewed & are unremarkable except as noted in HPI and below PMFSH Past Medical History Medical History Left wrist sprain Hypertension Elevated blood pressure reading Smoking HLD (hyperlipidemia) Surgical History Surgical History No significant past surgical history Family History Family History Father Hypertension Family history of elevated blood lipids Family history of coronary artery disease Mother Hypertension Sibling Family history of elevated blood lipids Other Arthritis HLD (hyperlipidemia) Social History Social History Smoking packs per day: 1 Smoking cigarettes per day: 20.0 Smoking status: Current every day smoker Tobacco type: e-cigarettes/vaping Second hand tobacco smoke exposure: Yes Alcohol intake: current Drinks per week: 14 Substance use: never Substance use type: does not use Living arrangements: with family Occupation/Education: occupation Gender identity (if verbalized by the patient): Male Meds Home Medications and Allergies Home Medications ?Medication ?Instructions ?Recorded ?Confirmed ?Type pravastatin 20 mg tablet 20 mg PO DAILY #90 tabs 02/22/24 09/13/24 Rx Allergies Allergy/AdvReac Type Severity Reaction Status Date / Time azithromycin Allergy Unknown Anxiety Verified 09/12/24 13:31 Vital Signs Vital Signs - 24 hr 09/12/24 23:52 09/13/24 02:06 09/13/24 04:20 Temperature 37.2 C Pulse Rate 80 74 75 Respiratory Rate 18 16 16 Blood Pressure 154/95 H 148/92 H 124/88 Pulse Oximetry 100 98 96 09/13/24 05:57 09/13/24 07:23 Temperature Pulse Rate 83 76 Respiratory Rate 16 20 Blood Pressure 136/100 H Pulse Oximetry 100 100 Exam 2 Const: General: cooperative, no acute distress and uncomfortable HENMT: Head: normal to inspection, normocephalic and atraumatic Eyes: General: appearance normal, both eyes and all related structures Neck: Neck: normal visual inspection, full ROM and no lymphadenopathy Resp: Auscultation: clear to auscultation bilaterally Cardio: Rate: regular rate Rhythm: regular rhythm GI: Inspection: normal to inspection and distended GI Palp: Yes abdominal tenderness and No Guarding due to palpation present (GI) Skin: General skin exam: normal color and no rashes or lesions noted Neuro: General: patient oriented x3 and CN's II-XI intact bilaterally Extrem: General: normal to inspection and full ROM Results Labs 09/13/24 02:03 09/13/24 02:03 Labs: Abnormal lab results 09/13/24 09/13/24 Range/Units 02:03 08:15 RBC 4.41 L (4.6-6.20) M/mm3 Neut % (Auto) 74.7 H (45.5-73.1) % Lymph % (Auto) 13.9 L (18.3-44.2) % [place] % (Auto) 9.9 H (2.6-8.5) % [place] # (Auto) 0.7 H (0.1-0.6) K/mm3 Sodium 135 L (137-145) mmol/L Glucose 113 H (65-110) mg/dL AST 60 H (17-59) U/L ALT 69 H (6-50) U/L Ur Specific [place] > 1.045 H (1.001-1.035) Urine Ketones Trace H (Negative) mg/dL Diabetes panel 09/13/24 Range/Units 02:03 Sodium 135 L (137-145) mmol/L Potassium 3.6 (3.4-5.0) mmol/L Chloride 99 (98-107) mmol/L Carbon Dioxide 27 (22-30) mmol/L BUN 18 (9-20) mg/dL Creatinine 1.09 (0.7-1.3) mg/dL Glucose 113 H (65-110) mg/dL Calcium 9.3 (8.4-10.2) mg/dL AST 60 H (17-59) U/L ALT 69 H (6-50) U/L Alkaline Phosphatase 61 (38-126) U/L Total Protein 7.0 (6.3-8.2) g/dL Albumin 4.1 (3.5-5.1) g/dL Calcium panel 09/13/24 Range/Units 02:03 Calcium 9.3 (8.4-10.2) mg/dL Albumin 4.1 (3.5-5.1) g/dL Pituitary panel 09/13/24 Range/Units 02:03 Sodium 135 L (137-145) mmol/L Potassium 3.6 (3.4-5.0) mmol/L Chloride 99 (98-107) mmol/L Carbon Dioxide 27 (22-30) mmol/L BUN 18 (9-20) mg/dL Creatinine 1.09 (0.7-1.3) mg/dL Glucose 113 H (65-110) mg/dL Calcium 9.3 (8.4-10.2) mg/dL Adrenal panel 09/13/24 Range/Units 02:03 Sodium 135 L (137-145) mmol/L Potassium 3.6 (3.4-5.0) mmol/L Chloride 99 (98-107) mmol/L Carbon Dioxide 27 (22-30) mmol/L BUN 18 (9-20) mg/dL Creatinine 1.09 (0.7-1.3) mg/dL Glucose 113 H (65-110) mg/dL Calcium 9.3 (8.4-10.2) mg/dL Total Bilirubin 1.1 (0.2-1.3) mg/dL AST 60 H (17-59) U/L ALT 69 H (6-50) U/L Alkaline Phosphatase 61 (38-126) U/L Total Protein 7.0 (6.3-8.2) g/dL Albumin 4.1 (3.5-5.1) g/dL All other labs normal. Imaging Abdominal x-ray: report reviewed and image reviewed Abdomen CT scan report/results: report reviewed and image reviewed
--- NOTE | 2024-09-13 09:26 | PC.NURSE ---
X-ray in room now for scan.
--- NOTE | 2024-09-13 09:58 | PC.NURSE ---
This patient, Owen Laura, was admitted to [facility] Surg Room 316-01. Patient/family oriented to hospital policies and general routines including ID bracelet, bed and alarms, visiting hours, pain management, procedures, bathroom and other care routines, personal items, smoking policy, room service/diet, and visiting hours. Information on how to activate the Rapid Response Team has been discussed. Patient/Family are encouraged to report perceived risks to care and to ask questions if they do not understand what they are told or what they should do.
--- NOTE | 2024-09-13 16:55 | PM.IMHP ---
H&P: HPI History of Present Illness Date/Time: 09/13/24 16:55 Chief Complaint: ABd pain and distention Narrative: 54 yo male with PMH of HLD and HTN who presented to the ER on account of abd pain and distension which started about 4 days ago. Noted intermittent abd pain initially, however continued worsening with frequency duration. Described pain as crampy , about 8/10 in intensity in the upper abd region. Noted one episode of vomiting. Denies any chest pain, SOB, diarrhea, lightheadedness, and no focal weakness. ER eval notable for BP 139/97, labs notable for AST 60, ALT 69. CT AP showed small obstruction with transient point in the right mid abdomen. Gen surgery was consulted Review of Systems Review of Systems: all other systems were reviewed and negative except as noted in the HPI above PMFSH Past Medical History Medical History Left wrist sprain Hypertension Elevated blood pressure reading Smoking HLD (hyperlipidemia) Surgical History Surgical History No significant past surgical history Family History Family History Father Hypertension Family history of elevated blood lipids Family history of coronary artery disease Mother Hypertension Sibling Family history of elevated blood lipids Other Arthritis HLD (hyperlipidemia) Social History Social History Smoking packs per day: 1 Smoking cigarettes per day: 20.0 Smoking status: Never smoker Tobacco type: e-cigarettes/vaping Second hand tobacco smoke exposure: Yes Alcohol intake: never Drinks per week: 14 Substance use: never Substance use type: does not use Do You Feel Safe in your Home?: Yes Lack of Transportation: No Lack of Food: Never True Current Housing: I Have Housing Concerned About Future Housing: No Difficulty Paying Gas/Electric Bills: No Difficulty Paying for Meds: No Currently Unemployed: No Education: High School Diploma/GED Difficulty w/ Childcare or Family Care: No Living arrangements: with family Occupation/Education: occupation Gender identity (if verbalized by the patient): Male Spiritual care concerns: No Meds Home Medications and Allergies Home Medications ?Medication ?Instructions ?Recorded ?Confirmed ?Type pravastatin 20 mg tablet 20 mg PO DAILY #90 tabs 02/22/24 09/13/24 Rx Allergies Allergy/AdvReac Type Severity Reaction Status Date / Time azithromycin Allergy Unknown Anxiety Verified 09/12/24 13:31 Vital Signs Vital Signs - 24 hr 09/12/24 23:52 09/13/24 02:06 09/13/24 04:20 Temperature 99 F Pulse Rate 80 74 75 Respiratory Rate 18 16 16 Blood Pressure 154/95 H 148/92 H 124/88 Pulse Oximetry 100 98 96 Oxygen Delivery 09/13/24 05:57 09/13/24 07:23 09/13/24 09:03 Temperature Pulse Rate 83 76 Respiratory Rate 16 20 Blood Pressure 136/100 H Pulse Oximetry 100 100 99 Oxygen Delivery Room Air 09/13/24 14:00 Temperature 98.3 F Pulse Rate 76 Respiratory Rate 18 Blood Pressure 125/96 H Pulse Oximetry 97 Oxygen Delivery Exam Narrative: General: alert and comfortable Eyes: EOMI, PERRLA ENNT External ears normal, Neck is supple, no masses, Respiratory systems: Clear to auscultation Cardiovascular S1, S2, normal rhythm, no murmur, rub, or gallop; no thrill or palpable murmurs on palpation. Gastrointestinal: soft, tender epigastrium, and non-distended abdomen with no masses; BS present Skin: no rash, lesions, ulcerations, subcutaneous nodules or induration Musculoskeletal: no abnormality and no tenderness, normal ROM Neurologic: Alert and oriented x3, non focal Mental Status Exam: normal affect H&P: Results Labs Labs: Short CBC 09/13/24 Range/Units 02:03 WBC 7.5 (4.5-10.0) K/mm3 Hgb 14.7 (14.0-18.0) g/dL Hct 43.0 (42.0-52.0) % Plt Count 188 (150-375) k/mm3 BMP 09/13/24 02:03 Sodium 135 L Potassium 3.6 Chloride 99 Carbon Dioxide 27 BUN 18 Creatinine 1.09 Glucose 113 H Calcium 9.3 Liver Function 09/13/24 Range/Units 02:03 Total Bilirubin 1.1 (0.2-1.3) mg/dL AST 60 H (17-59) U/L ALT 69 H (6-50) U/L Alkaline Phosphatase 61 (38-126) U/L Albumin 4.1 (3.5-5.1) g/dL Urine 05/29/25 Range/Units 08:15 Urine Color Yellow (Yellow) Urine Appearance Clear (Clear) Urine pH 5.5 (5.0-9.0) Ur Specific [place] > 1.045 H (1.001-1.035) Urine Protein Negative (Negative) mg/dL Urine Glucose (UA) Negative (Negative) mg/dL Assessment and Plan Assessment and plan (1) Small bowel obstruction: Code(s): K56.609 - Unspecified intestinal obstruction, unspecified as to partial versus complete obstruction Status: Acute Plan SBO CT AP reviewed S/p NG tube decompression continue conservative management and advance diet per Gen surgery Continue IVF Gen surgery following Hypertension Patient noted that he has been on lifestyle modification Elevated liver enzymes AST/ALT 60/69 monitor DVT prophylaxis on Sq Lovenox Full code Surrogate decisioin maker Anneliese Laura [id number]
[2024-09-13] MEDS: LACTATED RINGERS 1,000 ML 60 ML IV CONT (17:30)
[2024-09-14 05:37] VITALS: BP 142/90; PULSE 73; RESP 16; TEMP 36.3; O2SAT 100
[2024-09-14 06:18] LABS: Basophils Percent Auto 0.4 % (0.2-1.2); Eosinophils Absolute Auto 0.1 K/mm3 (0-0.3); Eosinophils Percent Auto 0.8 % (0-4.4); Hematocrit 43.7 % (42.0-52.0); Hemoglobin 14.6 g/dL (14.0-18.0); Immature Granulocyte Absolute 0.02 K/mm3 (0.00-0.031); Immature Granulocyte Percent A 0.3 % (0-0.5); Lymphocytes Absolute Auto 0.82 K/mm3 (0.9-3.2); Lymphocytes Percent Auto 10.5 % (18.3-44.2); Mean Corpuscular HGB Conc 33.4 g/dl (32-36); Mean Corpuscular Hemoglobin 33.2 pg (26-34); Mean Corpuscular Volume 99.3 fl (80-100); Mean Platelet Volume 9.7 fl (7.4-10.4); Monocytes Absolute Auto 0.8 K/mm3 (0.1-0.6); Monocytes Percent Auto 9.9 % (2.6-8.5); Neutrophils Absolute Auto 6.1 K/mm3 (1.3-6.7); Neutrophils Percent Auto 78.1 % (45.5-73.1); Platelet Count Result 185 k/mm3 (150-375); Red Cell Distribution Width 12.2 % (11.5-14.5); White Blood Count 7.8 K/mm3 (4.5-10.0)
[2024-09-14 06:30] LABS: Alanine Aminotransferase 72 U/L (6-50); Alkaline Phosphatase 56 U/L (38-126); Anion Gap 4 mmol/L (4-12); Aspartate Amino Transferase 44 U/L (17-59); Bilirubin,Total 1.3 mg/dL (0.2-1.3); Blood Urea Nitrogen 20 mg/dL (9-20); Calcium 9.3 mg/dL (8.4-10.2); Carbon Dioxide 32 mmol/L (22-30); Chloride 101 mmol/L (98-107); Estimated CRCL calculation 62 ml/min; Estimated Glomerular Filt Rate 57; Glucose 117 mg/dL (65-110); Magnesium 2.4 mg/dL (1.6-2.3); Potassium 3.8 mmol/L (3.4-5.0); Sodium 137 mmol/L (137-145)
[2024-09-14 08:00] VITALS: PULSE 73; RESP 16; O2SAT 100
[2024-09-14] MEDS: SIMETHICONE 80 MG TAB.CHEW PO ×2 (11:18→17:58)
--- NOTE | 2024-09-14 12:49 | PM.PNGS ---
Progress Note: A&P Assessment and Plan (1) Small bowel obstruction: Code(s): K56.609 - Unspecified intestinal obstruction, unspecified as to partial versus complete obstruction Status: Acute Assessment and Plan: resolved, SBS normal, +bowel fxn (2) Bloating: Code(s): R14.0 - Abdominal distension (gaseous) Status: Acute Assessment and Plan: still c bloating and distention after eating/drinking, will get HIDA, GI consult Subjective Subjective Date/Time Seen: 09/14/24 12:49 Interval history: feels better, but still c bloating and distention after eating/drinking, multiple BMs, +flatus Review of Systems Review of Systems: All systems reviewed & are unremarkable except as noted in HPI and below Exam Const: General: cooperative, no acute distress and uncomfortable Resp: Auscultation: clear to auscultation bilaterally Cardio: Rate: regular rate Rhythm: regular rhythm GI: Inspection: normal to inspection and distended GI Palp: No abdominal tenderness and Yes Soft to palpation Objective Data Vital Signs Vital Signs: Vital Signs - 24 hr 09/13/24 14:00 09/13/24 21:37 09/13/24 21:43 Temperature 36.8 C 36.8 C Pulse Rate 76 75 Respiratory Rate 18 16 Blood Pressure 125/96 H 134/88 Pulse Oximetry 97 98 98 Oxygen Delivery Room Air 09/14/24 05:37 09/14/24 08:00 Temperature 36.3 C L Pulse Rate 73 73 Respiratory Rate 16 16 Blood Pressure 142/90 H Pulse Oximetry 100 100 Oxygen Delivery Room Air Intake/Output Intake/Output: Intake & Output 09/11/24 09/12/24 09/13/24 09/14/24 23:59 23:59 23:59 23:59 Intake Total 1390 390 Output Total 300 Balance 1090 390 Meds/Results Medications: Active Medications Generic Name Dose Route Start Last Admin Trade Name Freq PRN Reason Stop Dose Admin Acetaminophen 650 mg 09/13/24 05:41 Acetaminophen 325 Mg Tablet PO Q4H PRN Mild Pain (1-3) or Fever Enoxaparin Sodium 40 mg 09/14/24 09:00 09/14/24 10:35 Enoxaparin 40 Mg/0.4 Ml Syringe SUB-Q Not Given DAILY JANIS Hydromorphone HCl 0.5 mg 09/13/24 05:41 Hydromorphone Hcl Inj (*Crx) 2 Mg/Ml Vial IV PUSH Q4H PRN Pain Rated 7-10 Ondansetron HCl 4 mg 09/13/24 05:41 Ondansetron Inj 4 Mg/2 Ml Vial IV PUSH Q4H PRN Nausea Simethicone 80 mg 09/14/24 10:41 09/14/24 11:18 Simethicone 80 Mg Tab.Chew PO 80 mg QID PRN Administration Gas Discomfort Radiology Results: ITS Impressions Abdomen/Pelvis CT 09/13/24 05:31 Impression: Small bowel obstruction, as detailed above. Transient point in the right mid abdomen. Abdomen X-Ray 09/13/24 06:08 Impression: NG tube in satisfactory position. Small bowel obstruction. Small Bowel X-Ray 09/13/24 10:43 IMPRESSION: 1. Normal small bowel follow-through. Labs Labs: Laboratory Results - last 24 hr 09/14/24 06:07 WBC 7.8 RBC 4.40 L Hgb 14.6 Hct 43.7 MCV 99.3 MCH 33.2 MCHC 33.4 RDW 12.2 Plt Count 185 MPV 9.7 Immature Gran % (Auto) 0.3 Neut % (Auto) 78.1 H Lymph % (Auto) 10.5 L [place] % (Auto) 9.9 H Eos % (Auto) 0.8 Baso % (Auto) 0.4 Lymph # (Auto) 0.82 L [place] # (Auto) 0.8 H Eos # (Auto) 0.1 Baso # (Auto) 0.0 Abs Immat Gran (auto) 0.02 Absolute Neuts (auto) 6.1 Absolute Nucleated RBC 0.000 Nucleated RBC % 0.0 Sodium 137 Potassium 3.8 Chloride 101 Carbon Dioxide 32 H Anion Gap 4 BUN 20 Creatinine 1.32 H Estim Creat Clear Calc 62 Estimated GFR 57 L Glucose 117 H Calcium 9.3 Magnesium 2.4 H Total Bilirubin 1.3 AST 44 ALT 72 H Alkaline Phosphatase 56 Total Protein 7.0 Albumin 4.0
--- NOTE | 2024-09-14 13:33 | PM.IMPN ---
Progress Note: A&P Assessment and Plan (1) Small bowel obstruction: Code(s): K56.609 - Unspecified intestinal obstruction, unspecified as to partial versus complete obstruction Status: Acute Plan SBO CT AP reviewed, SBS normal S/p NG tube decompression continue conservative management and advance diet per Gen surgery tolerating diet however complains of bloating GI consulted and HIDA scan ordered Gen surgery following Hypertension Patient noted that he has been on lifestyle modification Elevated liver enzymes AST/ALT 60/69 -->44/72 monitor DVT prophylaxis on Sq Lovenox Full code Subjective Date/time seen: 09/14/24 13:33 Interval history: Comfortable at bedside however complains of bloating Review of Systems Review of Systems: all other systems were reviewed and negative except as noted in the HPI above Exam Narrative: General: alert and comfortable Eyes: EOMI, PERRLA ENNT External ears normal, Neck is supple, no masses, Respiratory systems: Clear to auscultation Cardiovascular S1, S2, normal rhythm, no murmur, rub, or gallop; no thrill or palpable murmurs on palpation. Gastrointestinal: soft, tender epigastrium, and non-distended abdomen with no masses; BS present Skin: no rash, lesions, ulcerations, subcutaneous nodules or induration Musculoskeletal: no abnormality and no tenderness, normal ROM Neurologic: Alert and oriented x3, non focal Mental Status Exam: normal affect Objective Data Vital Signs Vital Signs: Vital Signs - 24 hr 09/13/24 14:00 09/13/24 21:37 09/13/24 21:43 Temperature 98.3 F 98.2 F Pulse Rate 76 75 Respiratory Rate 18 16 Blood Pressure 125/96 H 134/88 Pulse Oximetry 97 98 98 Oxygen Delivery Room Air 09/14/24 05:37 09/14/24 08:00 Temperature 97.3 F L Pulse Rate 73 73 Respiratory Rate 16 16 Blood Pressure 142/90 H Pulse Oximetry 100 100 Oxygen Delivery Room Air Intake/Output Intake/Output: Intake & Output 09/11/24 09/12/24 09/13/24 09/14/24 23:59 23:59 23:59 23:59 Intake Total 1390 390 Output Total 300 Balance 1090 390 Meds/Results Medications: Active Medications Generic Name Dose Route Start Last Admin Trade Name Freq PRN Reason Stop Dose Admin Acetaminophen 650 mg 09/13/24 05:41 Acetaminophen 325 Mg Tablet PO Q4H PRN Mild Pain (1-3) or Fever Enoxaparin Sodium 40 mg 09/14/24 09:00 09/14/24 10:35 Enoxaparin 40 Mg/0.4 Ml Syringe SUB-Q Not Given DAILY JANIS Hydromorphone HCl 0.5 mg 09/13/24 05:41 Hydromorphone Hcl Inj (*Crx) 2 Mg/Ml Vial IV PUSH Q4H PRN Pain Rated 7-10 Ondansetron HCl 4 mg 09/13/24 05:41 Ondansetron Inj 4 Mg/2 Ml Vial IV PUSH Q4H PRN Nausea Simethicone 80 mg 09/14/24 10:41 09/14/24 11:18 Simethicone 80 Mg Tab.Chew PO 80 mg QID PRN Administration Gas Discomfort Radiology Results: ITS Impressions Abdomen/Pelvis CT 09/13/24 05:31 Impression: Small bowel obstruction, as detailed above. Transient point in the right mid abdomen. Abdomen X-Ray 09/13/24 06:08 Impression: NG tube in satisfactory position. Small bowel obstruction. Small Bowel X-Ray 09/13/24 10:43 IMPRESSION: 1. Normal small bowel follow-through. Labs Labs: Laboratory Results - last 24 hr 09/14/24 06:07 WBC 7.8 RBC 4.40 L Hgb 14.6 Hct 43.7 MCV 99.3 MCH 33.2 MCHC 33.4 RDW 12.2 Plt Count 185 MPV 9.7 Immature Gran % (Auto) 0.3 Neut % (Auto) 78.1 H Lymph % (Auto) 10.5 L [place] % (Auto) 9.9 H Eos % (Auto) 0.8 Baso % (Auto) 0.4 Lymph # (Auto) 0.82 L [place] # (Auto) 0.8 H Eos # (Auto) 0.1 Baso # (Auto) 0.0 Abs Immat Gran (auto) 0.02 Absolute Neuts (auto) 6.1 Absolute Nucleated RBC 0.000 Nucleated RBC % 0.0 Sodium 137 Potassium 3.8 Chloride 101 Carbon Dioxide 32 H Anion Gap 4 BUN 20 Creatinine 1.32 H Estim Creat Clear Calc 62 Estimated GFR 57 L Glucose 117 H Calcium 9.3 Magnesium 2.4 H Total Bilirubin 1.3 AST 44 ALT 72 H Alkaline Phosphatase 56 Total Protein 7.0 Albumin 4.0
[2024-09-14 14:00] VITALS: BP 123/87; PULSE 79; RESP 18; TEMP 36.5; O2SAT 100
[2024-09-14 19:42] VITALS: BP 130/80; PULSE 72; RESP 12; TEMP 36.4; O2SAT 97
[2024-09-15 04:41] VITALS: BP 114/78; PULSE 62; RESP 12; TEMP 36.6; O2SAT 96
[2024-09-15] MEDS: ACETAMINOPHEN 325 MG TABLET 650 MG PO (06:05)
[2024-09-15 08:00] VITALS: PULSE 62; RESP 12; O2SAT 96
--- NOTE | 2024-09-15 12:32 | P.CONGI_ITS ---
Assessment and Plan Assessment and plan (1) Nausea and vomiting in adult: Code(s): R11.2 - Nausea with vomiting, unspecified Status: Acute Assessment and Plan: resolved now here with sbo, surgery evaluated patient he is back to his baseline probably going home today recommend to do EGD and colonoscopy in few more weeks, patient is not ready to set up appointment yet but will give our information and he will call (2) Bloating: Code(s): R14.0 - Abdominal distension (gaseous) Status: Acute Assessment and Plan: resolved (3) Small bowel obstruction: Code(s): K56.609 - Unspecified intestinal obstruction, unspecified as to partial versus complete obstruction Status: Acute Assessment and Plan: resolved after treated clinically SBFT normal (4) Elevated liver enzymes: Code(s): R74.8 - Abnormal levels of other serum enzymes Status: Acute Assessment and Plan: probably from acute sbo repeat again as outpatient and if elevated then follow-up in office liver imaging reviewed- no findings (5) Abdominal pain: Code(s): R10.9 - Unspecified abdominal pain Status: Acute Assessment and Plan: resolved GI Consult Note Consult date/time: 09/15/24 12:32 Reason for consult: bloating, small bowel obstruction HPI: Owen Laura is a 54 year old male h/o HTN here with new onset of severe, crampy abdominal pain, intractable nausea and vomiting which is new and started 2-3 days prior presentation. Pain progressively worsened and he is really unable to keep anything finally came to ER. The patient denies any previous similar episodes. Workup in the emergency department, including imaging, is significant for small bowel obstruction. The patient reports his only abdominal surgery in the past is a right inguinal hernia surgery as a child. Surgery evaluated patient, had NGT but now discontinued. Abdominal pain is gone, no more nausea and had flatus, he is back to his baseline. Repeat small bowel XR normal. He is going home today, blood work also noted mild elevated transaminases. Never had egd or colonoscopy, only negative cologuard. Review of Systems 2 Constitutional: Constitutional: Denies headache(s) and Denies weakness Eyes: Eyes: Denies blurry vision ENT: Reports Normal hearing present, Denies headache(s) and Denies neck pain Cardiovascular: Cardiovascular: Denies chest pain and Denies dyspnea Respiratory: Respiratory: Denies dyspnea Gastrointestinal: Gastrointestinal: Reports abdominal pain, Reports nausea and Reports vomiting Genitourinary: Genitourinary: Denies dysuria Musculoskeletal: Musculoskeletal: Denies neck pain Integumentary/Breasts: Skin/Breast: Denies dry skin Neurologic: Reports Normal hearing present, Denies headache(s) and Denies weakness Psychiatric: Psychiatric: Denies anxiety PMFSH Past Medical History Medical History (Updated 09/15/24 @ 12:37 by Sam Goldman MD) Abdominal pain Elevated liver enzymes Nausea and vomiting in adult Left wrist sprain Hypertension Elevated blood pressure reading Smoking HLD (hyperlipidemia) Surgical History Surgical History No significant past surgical history Family History Family History Father Hypertension Family history of elevated blood lipids Family history of coronary artery disease Mother Hypertension Sibling Family history of elevated blood lipids Other Arthritis HLD (hyperlipidemia) Social History Social History Smoking packs per day: 1 Smoking cigarettes per day: 20.0 Smoking status: Never smoker Tobacco type: e-cigarettes/vaping Second hand tobacco smoke exposure: Yes Alcohol intake: never Drinks per week: 14 Substance use: never Substance use type: does not use Do You Feel Safe in your Home?: Yes Lack of Transportation: No Lack of Food: Never True Current Housing: I Have Housing Concerned About Future Housing: No Difficulty Paying Gas/Electric Bills: No Difficulty Paying for Meds: No Currently Unemployed: No Education: High School Diploma/GED Difficulty w/ Childcare or Family Care: No Living arrangements: with family Occupation/Education: occupation Gender identity (if verbalized by the patient): Male Spiritual care concerns: No Meds Home Medications and Allergies Home Medications ?Medication ?Instructions ?Recorded ?Confirmed ?Type pravastatin 20 mg tablet 20 mg PO DAILY #90 tabs 02/22/24 09/13/24 Rx Allergies Allergy/AdvReac Type Severity Reaction Status Date / Time azithromycin Allergy Unknown Anxiety Verified 09/12/24 13:31 Vital Signs Vital Signs - 24 hr 09/14/24 14:00 09/14/24 19:42 09/15/24 04:41 Temperature 97.7 F 97.6 F 97.8 F Pulse Rate 79 72 62 Respiratory Rate 18 12 12 Blood Pressure 123/87 130/80 114/78 Pulse Oximetry 100 97 96 Oxygen Delivery 09/15/24 08:00 Temperature Pulse Rate 62 Respiratory Rate 12 Blood Pressure Pulse Oximetry 96 Oxygen Delivery Room Air Exam 2 Const: General: comfortable and no acute distress HENMT: Face/Nose/Sinus: Normal nares present Eyes: General: appearance normal, both eyes and all related structures Neck: Neck: supple Resp: Auscultation: clear to auscultation bilaterally Cardio: Rate: regular rate Rhythm: regular rhythm GI: Inspection: non-distended GI Palp: Yes Soft to palpation and No Tenderness to palpation present (GI) Auscultation: normal bowel sounds Skin: General skin exam: normal color Neuro: Speech: normal speech Motor exam (neuro): 5/5 motor strength present throughout Extrem: General: normal to inspection Psych: Mental Status: mental status grossly normal Results Labs 09/14/24 06:07 09/14/24 06:07
--- NOTE | 2024-09-15 13:39 | WPDPN ---
Progress Note: A&P Assessment and Plan (1) Small bowel obstruction: Code(s): K56.609 - Unspecified intestinal obstruction, unspecified as to partial versus complete obstruction Status: Acute Assessment and Plan: Small-bowel obstruction resolved. Patient be discharged from general surgery standpoint. He is going to follow up with GI for endoscopy. Follow-up surgery on a p.r.n. basis. Subjective Date/time seen: 09/15/24 13:39 Interval history: Patient doing well today. He was bloated yesterday but that has completely resolved today. He is having bowel movements now without difficulty. Tolerating regular diet and has no pain. States he feels like he is back to his normal baseline. Exam GI: Other: Abdomen is soft and nondistended. Nontender. Benign exam. Objective Data Vital Signs Vital Signs: Vital Signs - 24 hr 09/14/24 14:00 09/14/24 19:42 09/15/24 04:41 Temperature 36.5 C 36.4 C 36.6 C Pulse Rate 79 72 62 Respiratory Rate 18 12 12 Blood Pressure 123/87 130/80 114/78 Pulse Oximetry 100 97 96 Oxygen Delivery 09/15/24 08:00 Temperature Pulse Rate 62 Respiratory Rate 12 Blood Pressure Pulse Oximetry 96 Oxygen Delivery Room Air Intake/Output Intake/Output: Intake & Output 09/12/24 09/13/24 09/14/24 09/15/24 23:59 23:59 23:59 23:59 Intake Total 1390 870 560 Output Total 300 Balance 1090 870 560 Meds/Results Medications: Active Medications Generic Name Dose Route Start Last Admin Trade Name Freq PRN Reason Stop Dose Admin Acetaminophen 650 mg 09/13/24 05:41 09/15/24 06:05 Acetaminophen 325 Mg Tablet PO 650 mg Q4H PRN Administration Mild Pain (1-3) or Fever Enoxaparin Sodium 40 mg 09/14/24 09:00 09/15/24 09:37 Enoxaparin 40 Mg/0.4 Ml Syringe SUB-Q Not Given DAILY JANIS Hydromorphone HCl 0.5 mg 09/13/24 05:41 Hydromorphone Hcl Inj (*Crx) 2 Mg/Ml Vial IV PUSH Q4H PRN Pain Rated 7-10 Ondansetron HCl 4 mg 09/13/24 05:41 Ondansetron Inj 4 Mg/2 Ml Vial IV PUSH Q4H PRN Nausea Simethicone 80 mg 09/14/24 10:41 09/14/24 17:58 Simethicone 80 Mg Tab.Chew PO 80 mg QID PRN Administration Gas Discomfort Radiology Results: ITS Impressions Abdomen/Pelvis CT 09/13/24 05:31 Impression: Small bowel obstruction, as detailed above. Transient point in the right mid abdomen. Abdomen X-Ray 09/13/24 06:08 Impression: NG tube in satisfactory position. Small bowel obstruction. Small Bowel X-Ray 09/13/24 10:43 IMPRESSION: 1. Normal small bowel follow-through.
--- NOTE | 2024-09-15 14:26 | P.DS_ITS ---
DS: Admitting Diagnosis Discharge Date 09/15/24 Admitting Diagnosis abd pain and distention DS: Discharge Diagnosis Discharge Diagnosis (1) Small bowel obstruction: Code(s): K56.609 - Unspecified intestinal obstruction, unspecified as to partial versus complete obstruction Status: Acute DS: Summary Hospital Course Hospital Course: 54 yo male with PMH of HLD and HTN who presented to the ER on account of abd pain and distension which started about 4 days ago. Noted intermittent abd pain initially, however continued worsening with frequency duration. Described pain as crampy , about 8/10 in intensity in the upper abd region. Noted one episode of vomiting. Denies any chest pain, SOB, diarrhea, lightheadedness, and no focal weakness. ER eval notable for BP 139/97, labs notable for AST 60, ALT 69. CT AP showed small obstruction with transient point in the right mid abdomen. Gen surgery was consulted patient underwent NG tube decompression and the Small bowel series study post procedure showed normal exam. He was successfully transitioned to regular today. initially surgery was concerned about residual bloating and consulted GI, GI evaluated adn recommended outpatient follow up for EGD adn colonoscopy. Patient will follow up with PCP in 3-5 days, f/u with GI and Gen Surgery as instructed Time Spent with Patient Time attestation: Total time spent providing and/or coordinating discharge services: Discharge Plan Discharge Attending physician on discharge: Maliha Cedillo Consulting providers: Shaunna Camacho; Sam Goldman Discharging Clinician: Maliha Cedillo Anticipated Discharge Date/Time: 09/15/24 14:24 Patient Disposition: Home Activity: as tolerated Diet: as tolerated and regular Discharge Instructions: Patient may discharge from general surgery standpoint. Follow-up with surgery only on a p.r.n. basis. Patient is to follow up with GI as per their instructions for endoscopy in the future. Patient Instructions: Antibiotic Form Patient Language: Martiniquais Stand Alone Forms: General Discharge Information Follow-up/Referrals: Sean Cartwright MD [Primary Care Provider] - (F/u with PCP in 3-5 days ) Shaunna Camacho MD [Physician] - (F/u with Gen surgery as instructed ) Sam Goldman MD [Physician] - (F/u with GI as scheduled ) Discharge Medications: Continued pravastatin 20 mg tablet 20 mg PO DAILY Qty: 90 3RF Date of admission: 09/13/24 05:42 Primary Care Provider: Sean Cartwright Admitting Provider: Yasmeen Sullivan Attending physician on admission: Yasmeen Sullivan Condition: Stable
== END 2024-09-15 15:12 | disposition home or self-care (01) | DRG 390 ==
LOC: ANHED 09-13 05:41 → ANH3MEDSUR 09-14 11:12
PROVIDERS: Admitting Provider General Practice; Emergency Provider Student in an Organized Health Care Education/Training Program; PCP Family Medicine; Visit Provider Internal Medicine
DX: K56.609 Unspecified intestinal obstruction, unspecified as to partial versus complete obstruction (principal); I10 Essential (primary) hypertension; E78.5 Hyperlipidemia, unspecified; F17.290 Nicotine dependence, other tobacco product, uncomplicated
CPT/HCPCS: 36415; 74018; 74177; 74250; 80053; 81003; 82150; 83605; 83690; 83735; 85025; 96372; 96374; 96375; 99285; A9270; J0500; J1171; J2405; J7120; Q9967